=== PATIENT | male | born 1960 | race Caucasian/White ===

== ENCOUNTER → 2017-04-28 | Outpatient (CLI) | payer OTHER ==
[~2017-04-28] MED LIST: DOLOPHINE HCL10 MG PO; NORCO 5-325 TA1 EACH PO; SILVADENE20 GM TP
== END ==
LOC: MRI 06:59
DX: M19.012 Primary osteoarthritis, left shoulder (principal); M75.102 Unspecified rotator cuff tear or rupture of left shoulder, not specified as traumatic; M25.561 Pain in right knee; R20.0 Anesthesia of skin; Z87.891 Personal history of nicotine dependence

== ENCOUNTER → 2018-12-19 | Outpatient (CLI) | payer OTHER | LOC: RAD 10:55 | DX: M54.12 Radiculopathy, cervical region (principal) ==

== ENCOUNTER → 2020-04-24 | Outpatient (CLI) | payer OTHER | LOC: LAB 13:42 | PROVIDERS: ATTEND Nurse Practitioner | DX: R05 Cough (principal); Z20.828 Contact with and (suspected) exposure to other viral communicable diseases ==